=== PATIENT | female | born 1970 | race African-American/Black ===

== ENCOUNTER 2018-03-30 17:26 | Emergency (ER) | payer OTHER ==
[2018-03-30 18:01] LABS: #Basophils 0.1 thou/uL (0.0-0.2); #Eosinphils 0.2 thou/uL (0.0-0.7); #Lymphocytes 2.4 thou/uL (1.20-3.40); #Monocytes 0.3 thou/uL (0.11-0.59); #Neutrophils 4.1 thou/uL (1.40-6.50); %Basophils 0.8 % (0.0-1.0); %Eosinophils 2.5 % (0.0-10.0); %Lymphocytes 34.3 % (21.0-51.0); %Monocytes 4.7 % (0.0-10.0); %Neutrophils 57.7 % (42.0-75.0); Hemoglobin 11.3 g/dL (12.0-16.0); Mean Corpuscular HGB CONC 30.8 g/dL (32.0-36.0); Mean Corpuscular Hemoglobin 24.4 pg (27.0-31.0); Mean Corpuscular Volume 79.3 fL (78.0-98.0); Mean Platelet Volume 7.5 fL (7.4-10.4); Platelet Count 389 thou/uL (130-400); RBC Distribution Width 16.3 % (11.5-14.5); Red Blood Cell (RBC) Count 4.63 mill/uL (4.20-5.40)
--- NOTE | 2018-03-30 18:01 | RAD ---
CHEST ONE VIEW 03/30/18 HISTORY: 48-year-old female with history of chest pain which began today. Monitor leads overlie chest. Heart size is normal. The lungs are clear. IMPRESSION: No acute intrathoracic disease. POS: [facility]
[2018-03-30 18:21] LABS: ALT (SGPT) 9 U/L (8-55); AST (SGOT) 13 U/L (5-34); Alkaline Phosphatase 95 U/L (40-150); Anion Gap 13 mmol/L (10-20); BUN (Urea Nitrogen) 10 mg/dL (7.0-18.7); Bilirubin, Total 0.2 mg/dL (0.2-1.2); CK (CPK) 97 U/L (29-168); Calc. Creatinine Clearance 0 mL/min (70-130); Calcium 9.1 mg/dL (7.8-10.44); Carbon Dioxide 25 mmol/L (22-29); Chloride 103 mmol/L (98-107); Estimated GFR-MDRD 70; Globulin 3.4 g/dL (2.4-3.5); Glucose 129 mg/dL (70-105); Lipase 46 U/L (8-78); Potassium 3.9 mmol/L (3.5-5.1); Protein, Total 7.4 g/dL (6.0-8.3); Sodium 137 mmol/L (136-145)
[2018-03-30 18:33] LABS: CKMB 0.4 ng/mL (0-6.6); Troponin I Less than 0.010 ng/mL (< 0.028)
[2018-03-30 19:39] LABS: BHCG - Serum Negative (NEGATIVE); Pregs Control Background? CLEAR/WHITE (CLR/WHITE); Pregs Control Bar Appear? YES (CONTROL BAR)
--- NOTE | 2018-03-30 20:28 | CT ---
CT ANGIOGRAM CHEST WITH 3D RENDERIN03/30/18 HISTORY: 48-year-old female with history of chest pain. No CT evidence for acute pulmonary embolism. Small hiatal hernia. Left renal cyst. No acute pulmonary parenchymal mass. No pleural effusion or pericardial effusion. Some nodular enlargement of the lower pole of the left lobe of the thyroid probably representing a thyroid nodule up to approximately 3 cm . No pleural effusion or pericardial effusion. No convincing CT evidence for acute pulmonary embolism. Some nodular fullness of the inferior left lo be of the thyroid. Left renal cyst. Hiatal hernia. No other acute process. POS: [facility]
[2018-03-30 21:03] LABS: Troponin I Less than 0.010 ng/mL (< 0.028)
== END 2018-03-30 21:49 | disposition home or self-care (01) ==
LOC: ERS 17:26
DX: R07.89 Other chest pain (principal); F17.210 Nicotine dependence, cigarettes, uncomplicated
CPT/HCPCS: 36415; 71045; 71275; 80053; 82553; 83690; 84484; 84703; 85025; 85379; 93005

== ENCOUNTER 2018-05-23 10:47 | Outpatient (CLI) | payer OTHER ==
--- NOTE | 2018-05-23 12:34 | ULT ---
THYROID ULTRASOUND: 05/23/2018 HISTORY: Thyroid nodule. Nodule seen on prior CT exam on 03/30/2018. FINDINGS: The right lobe of the thyroid gland measures 5.1 cm x 2.1 cm x 2 cm, with the left lobe measuring 5.5 cm x 2 cm x 1.9 cm. The thyroid isthmus measures 1 cm in AP dimensions. There is a heterogeneous, solid nodule seen within the inferior pole, left lobe of thyroid gland, truman suring 2.4 cm x 2.1 cm x 2.2 cm. No additional thyroid nodule is visualized. IMPRESSION: 1. Solitary, dominant, heterogeneous, solid nodule within the left lobe of the thyroid gland, measur ing 2.4 cm. 2. TI-RADS level 4-Moderately suspicious. Fine needle aspiration is recommended if nodule is greate r than or equal to 1.5 cm. POS: [facility]
== END 2018-05-23 10:48 | disposition home or self-care (01) ==
LOC: BICULT 10:47
PROVIDERS: ATTEND Family Medicine
DX: E04.1 Nontoxic single thyroid nodule (principal)
CPT/HCPCS: 76536

== ENCOUNTER 2018-06-04 12:05 | Day surgery (SDC) | payer BC, OTHER ==
[2018-06-01 15:45] VITALS: BMI 42.3
[2018-06-04] MEDS ORDERED: Lidocaine 1% PF 5 ML VIAL ONE (12:50)
[2018-06-04] MEDS ORDERED: Sodium Bicarbonate 2.5 MEQ/5 ML VIAL ONE (12:50)
--- NOTE | 2018-06-04 14:52 | ULT ---
ULTRASOUND GUIDED FINE NEEDLE ASPIRATION LEFT THYROID NODULE: 06/04/2018 HISTORY: Heterogeneous, dominant, solitary nodule, inferior pole, left lobe of thyroid gland. Fine needle asp iration was requested. TECHNIQUE: After informed consent was obtained, the patient was placed on the sonography table in the supine pos ition. Limited sonographic evaluation of the left neck was performed. A heterogeneous nodule within the left lobe of the thyroid gland, noted on prior thyroid ultrasound of 05/23/2018, was localized. The area was marked and then meticulously prepped and draped in the usual sterile fashion. The skin and subcutaneous tissues were infiltrated with buffered 1% Lidocaine for local anesthesia. Utilizin g concurrent real-time ultrasound guidance, a total of 4 fine needle aspiration specimens were obtain ed, utilizing 25 gauge needles. After fine needle aspirations were performed, hemostasis was achieve d with direct pressure. Post fine needle aspiration sonographic images demonstrate no fluid surround ing the thyroid gland and no evidence of a hematoma. A dry, sterile dressing was placed at the puncture site. The patient was given an ice pack with inst ructions to follow post fine needle aspiration. The patient was discharged in stable condition. IMPRESSION: Technically successful ultrasound guided fine needle aspiration of a dominant, heterogeneous nodule, inferior pole, left lobe of thyroid gland. POS: [facility]
[2018-06-04 14:55] VITALS: BP 132/73; TEMP 98.6
== END 2018-06-04 13:40 | disposition home or self-care (01) ==
LOC: ULT 12:05
PROVIDERS: ATTEND Radiology Vascular & Interventional Radiology
PROC: 0GBG3ZX Excision of Left Thyroid Gland Lobe, Percutaneous Approach, Diagnostic (ICD-10-PCS; principal; 2018-06-04)
DX: E04.1 Nontoxic single thyroid nodule (principal); Z79.899 Other long term (current) drug therapy
CPT/HCPCS: 10005; 88173; J2001